=== PATIENT | male | born 1985 ===

== ENCOUNTER 2022-09-06 17:30 | Outpatient (CLI) | payer BC | END 2022-09-06 17:31 | disposition home or self-care (01) | LOC: SLEEPLAB 17:30 | PROVIDERS: ATTEND Family Medicine | DX: G47.33 Obstructive sleep apnea (adult) (pediatric) (principal); R53.83 Other fatigue; R40.0 Somnolence; R06.83 Snoring | CPT/HCPCS: 95800 ==